=== PATIENT | female | born 1970 | race African-American/Black ===

== ENCOUNTER 2019-07-30 04:26 | Emergency (ER) | payer OTHER ==
[~2019-07-30] VITALS: Ht 165.1 cm; Wt 83.0 kg
[2019-07-30] MEDS ORDERED: MORPHINE SULFATE 2 MG/ML SYR 1ML IV STA ×2 (04:40→06:00)
[2019-07-30] MEDS ORDERED: DIAZEPAM INJ 5 MG/ML 2 ML IV ONE (04:45)
[2019-07-30] MEDS ORDERED: TRAMADOL HCL 50 MG TAB ONE (05:22)
[2019-07-30] MEDS ORDERED: TRAMADOL HCL 50 MG TAB PO ONE (05:30)
[2019-07-30] MEDS ORDERED: KETOROLAC TROMETHAMINE 30 MG/ML VIAL IV ONE (05:45)
[2019-07-30] MEDS ORDERED: KETOROLAC TROMETHAMINE 30 MG/ML VIAL ONE (05:45)
[2019-07-30] MEDS ORDERED: MORPHINE SULFATE INJ 4 MG/ML INJ 1ML ONE (05:46)
[2019-07-30] MEDS ORDERED: DIAZEPAM INJ 5 MG/ML 2 ML ONE (07:25)
== END 2019-07-30 06:15 | disposition home or self-care (01) ==
LOC: FSED 04:26
DX: M79.622 Pain in left upper arm (principal)
CPT/HCPCS: 82553; 84484; 85379; 99283; J1885; J2270 ×2; J3360